=== PATIENT | male | born 1965 | race Hispanic/Latino ===

== ENCOUNTER 2023-04-06 17:26 | Emergency (ER) | payer BC, OTHER ==
[~2023-04-06 17:26] MED LIST: Sodium Chloride 0.9% 1,000 ML BAG ONE
[2023-04-06] MEDS ORDERED: diphenhydrAMINE 50 MG/ML VIAL ONE ×2 (17:40→19:38)
[2023-04-06] MEDS ORDERED: Famotidine/PF 20 mg/2ml Vial ONE (19:38)
== END 2023-04-06 23:11 | disposition short-term general hospital (02) ==
LOC: EDBD → MADERS 17:26
DX: T78.2XXA Anaphylactic shock, unspecified, initial encounter (principal); T63.441A Toxic effect of venom of bees, accidental (unintentional), initial encounter; I10 Essential (primary) hypertension; Z79.899 Other long term (current) drug therapy
CPT/HCPCS: 93005; 96374; 96375; 96376; J1200; J7050; S0028